=== PATIENT | male | born 1995 ===

== ENCOUNTER 2024-11-14 21:19 | Inpatient (IN) | payer SELFPAY ==
[2024-11-14 22:33] VITALS: BMI 27.8
[2024-11-14] MEDS ORDERED: HYDROcodone/Acetaminophen 10/325 mg Tablet PO PRN (23:34)
[2024-11-14] MEDS ORDERED: HYDROcodone/Acetaminophen 5/325 mg Tablet PO PRN (23:34)
[2024-11-14] MEDS ORDERED: TETANUS, DIPHTHERIA TOX,ADULT (TDVAX) 0.5 ML VIAL IM ONE (23:34)
[2024-11-14] MEDS ORDERED: Communication Order-Pharmacy FS SCH (23:45)
[2024-11-15 04:52] LABS: #Basophils 0.05 10x3/uL (0.0-0.2); #Eosinophils 0.16 10x3/uL (0.0-0.7); #Monocytes 0.95 10x3/uL (0.11-0.59); #Neutrophils 6.28 10x3/uL (1.40-6.50); %Basophils 0.5 % (0.0-1.0); %Eosinophils 1.6 % (0.0-10.0); %Lymphocytes 25.8 % (21.0-51.0); %Monocytes 9.4 % (0.0-10.0); %Neutrophils 62.3 % (42.0-75.0); Hematocrit 40.6 % (42.0-52.0); Hemoglobin 13.5 g/dL (14.0-18.0); Mean Corpuscular Hemoglobin 30.9 pg (27.0-31.0); Mean Corpuscular Volume 92.9 fL (78.0-98.0); Platelet Count 267 10x3/uL (130-400); Red Blood Cell (RBC) Count 4.37 mill/uL (4.70-6.10); White Blood Cell (WBC) Count 10.08 10x3/uL (4.8-10.8)
[2024-11-15] MEDS ORDERED: Bacitracin Zinc Ointment 30 gm TUBE ONE (06:18)
[2024-11-15] MEDS ORDERED: CEFAZOLIN 2 GM VIAL ONE (06:59)
[2024-11-15] MEDS ORDERED: PROPOFOL 20 ML ONE (07:05)
[2024-11-15] MEDS ORDERED: Lidocaine 1% PF 5 ML VIAL ONE (07:05)
[2024-11-15] MEDS ORDERED: Ondansetron PF 4 MG/2 ML Vial ONE (07:05)
[2024-11-15] MEDS: Aspirin 81 mg Enteric Coated Tablet PO SCH (09:21)
[2024-11-15] MEDS: PNEUMOC 20-VAL CONJ-DIP CRM/PF 0.5 ML SYRINGE IM ONE (14:17)
[2024-11-15] MEDS: Gentamicin Sulfate 80 MG in Premix 1 BAG IVPB SCH (14:55)
[2024-11-16 11:57] VITALS: BP 122/67; TEMP 98.2
== END 2024-11-16 13:47 | disposition home or self-care (01) | DRG 906 ==
LOC: MSONC 21:19
PROVIDERS: ADMIT Orthopaedic Surgery Hand Surgery; ATTEND Orthopaedic Surgery Hand Surgery
PROC: 0PBT0ZZ Excision of Right Finger Phalanx, Open Approach (ICD-10-PCS; principal; 2024-11-15)
PROC: 0HRFX73 Replacement of Right Hand Skin with Autologous Tissue Substitute, Full Thickness, External Approach (ICD-10-PCS; 2024-11-15)
PROC: 0HBDXZZ Excision of Right Lower Arm Skin, External Approach (ICD-10-PCS; 2024-11-15)
PROC: 0PBR0ZZ Excision of Right Thumb Phalanx, Open Approach (ICD-10-PCS; 2024-11-15)
DX: S67.01XA Crushing injury of right thumb, initial encounter (principal); Z87.81 Personal history of (healed) traumatic fracture; Z79.899 Other long term (current) drug therapy; Z98.890 Other specified postprocedural states
CPT/HCPCS: 36415; 85025; J0665; J1580; J2405; J2704; J3010; J7030